=== PATIENT | male | born 1960 | race African-American/Black ===

== ENCOUNTER 2016-11-10 12:50 | Emergency (ER) | payer OTHER ==
[~2016-11-10] VITALS: Ht 190.5 cm; Wt 118.2 kg
[2016-11-10 12:52] VITALS: BP 136/83; PULSE 85; RESP 18; O2SAT 95
--- NOTE | 2016-11-10 13:40 | PD ---
HPI Chief Complaint: Laceration/Skin Injury Time Seen by Provider: 13:20 Travel History International Travel<30 days: No Contact w/Intl Traveler<30days: No Traveled to known affect area: No History of Present Illness HPI 55-year-old male presents emergency department for evaluation of a puncture wound caused by a catfish santino. Injury occurred 2 hours ago. Patient reports he was fishing [place] when a catfish fell from his hand landing onto his right foot. The santino of the catfish punctured the right second toe on the dorsal aspect. When the fish was removed the santino appeared broken to the patient. Patient has a small 0.5 cm laceration to the dorsal aspect of the right second digit. There is no active bleeding. Patient reports pain at the site of the laceration. No alleviating factors. Moderate severity. Tetanus status unknown. PFSH Past Medical History Medical History: Denies Significant Hx Social History Tobacco Use: No Allergies-Medications (Allergen,Severity, Reaction): Coded Allergies: Penicillin (Verified Allergy, Mild, Hives, 11/10/16) Demerol (Verified Allergy, Unknown, Hives, 11/10/16) Reported Meds & Prescriptions Reported Meds & Active Scripts Active Reported Terazosin (Terazosin HCl) 10 Mg Cap 10 Mg PO HS Bupropion HCl ER 12 HR (Bupropion HCl) 100 Mg Tab 150 Mg PO Q12HR Flexeril (Cyclobenzaprine HCl) 10 Mg Tab 10 Mg PO TID Trazodone (Trazodone HCl) 100 Mg Tablet 100 Mg PO HS Tramadol (Tramadol HCl) 50 Mg Tab 50 Mg PO Q8H PRN Amlodipine (Amlodipine Besylate) 10 Mg Tab 10 Mg PO DAILY Pravastatin 40 Mg Tab 40 Mg PO DAILY Levetiracetam ER 24 HR (Levetiracetam) 500 Mg Ember 500 Mg PO DAILY Review of Systems Except as stated in HPI: all other systems reviewed are Neg Physical Exam Narrative GENERAL: Well-nourished, well-developed patient. SKIN: Focused skin assessment warm/dry. 0.5 cm laceration right second toe dorsal aspect. Patient has mild tenderness when the wound is palpated. HEAD: Normocephalic. EYES: No scleral icterus. No injection or drainage. NECK: Supple, trachea midline. No JVD or lymphadenopathy. CARDIOVASCULAR: Regular rate and rhythm without murmurs, gallops, or rubs. RESPIRATORY: Breath sounds equal bilaterally. No accessory muscle use. GASTROINTESTINAL: Abdomen soft, non-tender, nondistended. MUSCULOSKELETAL: No cyanosis, or edema. Right foot: 0.5 cm laceration right second toe dorsal aspect. Patient has mild tenderness when the wound is palpated. No active bleeding. No foreign body visualized on inspection. Data Data Last Documented VS Vital Signs Date Time Temp Pulse Resp B/P Pulse Ox O2 Delivery O2 Flow Rate FiO2 11/10/16 12:52 85 18 136/83 95 Room Air Orders Foot, Limited (2vws) (11/10/16 ) Tetanus/Diphtheria Tox Adult (Tetanus/Di (11/10/16 14:15) MDM Medical Decision Making Medical Screen Exam Complete: Yes Emergency Medical Condition: Yes Differential Diagnosis Puncture wound caused by some water fish, laceration, possible retained foreign body Narrative Course 55-year-old male with puncture wound to right toe caused by catfish santino. Injury occurred approximately one to 2 hours prior to arrival. No foreign body was visualized on exam. X-ray right foot: Negative for radiopaque foreign body. The wound was copiously irrigated with 1 L of normal saline. Sterile dressing applied. Patient was given instructions on wound care for puncture wounds. Prescription for doxycycline. Patient instructed to have close follow-up for recheck of the wound. Return precautions discussed. Patient verbalizes understanding. Tetanus status updated. Diagnosis Primary Impression: Puncture wound Referrals: Primary Care Physician Additional Instructions: Take the antibiotics as prescribed. Do not submerge the foot in pools, [place], [place], or hot tubs. Have the wound rechecked by her primary doctor Return to the emergency department if he developed new or worsening symptoms such as increasing pain, increasing swelling, purulent drainage from the wound, fever or chills. Scripts Doxycycline Hyclate 100 Mg [id number] Mg PO BID #20 CAP Ref 0 Prov:Kristi Hudson 11/10/16 Disposition: 01 DISCHARGE HOME Condition: Stable Kristi Hudson Nov 10, 2016 13:40
--- NOTE | 2016-11-10 14:06 | RADRPT ---
EXAM DATE/TIME: 11/10/2016 13:40 [facility] COMPARISON: No previous studies available for comparison. INDICATIONS : Foreign body, catfish santino at 2nd MTPJ. MEDICAL HISTORY : None. SURGICAL HISTORY : None. ENCOUNTER: Initial ACUITY: 1 day PAIN SCORE: 8/10 LOCATION: Right foot FINDINGS: Two view examination of the right foot demonstrates no soft tissue swelling, dislocation, or fracture . The calcaneus is intact. Bony mineralization is normal. CONCLUSION: 1. No radiodense foreign body identified. Conrad Hairston MD on November 10, 2016 at 14:03 Board Certified Radiologist. This report was verified electronically.
[2016-11-10] MEDS ORDERED: TERA10CA3 PO (14:12)
[2016-11-10] MEDS ORDERED: AMLO10TA2 PO (14:12)
[2016-11-10] MEDS ORDERED: LEVE500T11 PO (14:12)
[2016-11-10] MEDS ORDERED: PRAV40TA2 PO (14:12)
[2016-11-10] MEDS ORDERED: BUPR1TAB70 PO (14:12)
[2016-11-10] MEDS ORDERED: TRAZ100T6 PO (14:12)
[2016-11-10] MEDS ORDERED: TRAM50TA PO (14:12)
[2016-11-10] MEDS ORDERED: CYCL1TAB29 PO (14:12)
[2016-11-10] MEDS ORDERED: TETANUS/DIPHTHERIA TOXOID ADULT 0.5 ML VIAL IM ONE (14:15)
[2016-11-10] MEDS ORDERED: DOXY100C PO (14:31)
== END 2016-11-10 15:08 | disposition home or self-care (01) ==
LOC: NEPK 12:50
DX: S91.134A Puncture wound without foreign body of right lesser toe(s) without damage to nail, initial encounter (principal); W26.8XXA Contact with other sharp object(s), not elsewhere classified, initial encounter; Y93.19 Activity, other involving water and watercraft; Z23 Encounter for immunization
CPT/HCPCS: 73620; 90471; 90714